=== PATIENT | female | born 1985 | race African-American/Black ===

== ENCOUNTER 2019-08-29 23:00 | Inpatient (IN) | payer MEDICAID ==
[~2019-08-29] VITALS: Ht 154.9 cm; Wt 75.7 kg
[~2019-08-29 23:00] MED LIST: CIPRO; PEPCID
[2019-08-29] MEDS ORDERED: SODIUM CHLORIDE 0.9% 1,000 ML IV ONE (23:21)
[2019-08-29] MEDS ORDERED: LEVETIRACETAM 1000MG/100ML 100 ML IV ONE (23:30)
[2019-08-29 23:53] LABS: BASOPHILS % 0.7 % (0.0-2.0); EOSINOPHILS % 2.6 % (0.0-5.0); HEMATOCRIT. 33.9 % (36.0-48.0); HEMOGLOBIN. 11.5 g/dL (12.0-16.0); LYMPHOCYTES % 15.7 % (20.0-50.0); MEAN CORPUSCULAR HEMOGLOBIN 28.7 pg (28.0-32.0); MEAN CORPUSCULAR VOLUME 84.8 fL (81.0-99.0); MEAN PLATELET VOLUME 8.5 fl (7.4-10.4); PLATELET 423 x1000/uL (130-400); RED CELL DISTRIBUTION WIDTH 17.3 % (11.6-14.6)
[2019-08-30 00:04] LABS: CHLORIDE 107 mEq/L (98-107)
[2019-08-30 00:08] LABS: ETHANOL BLOOD < 10 mg/dL
[2019-08-30] MEDS ORDERED: LORAZEPAM 2MG/ML CPJ ONE (00:09)
[2019-08-30] MEDS ORDERED: LORAZEPAM 2MG/ML CPJ IV ONE ×2 (00:15→01:00)
[2019-08-30] MEDS ORDERED: PHENYTOIN SODIUM 1,000 MG in SODIUM CHLORIDE 0.9% 100 ML IV ONE (02:15)
[2019-08-30] MEDS ORDERED: LORAZEPAM 2MG/ML CPJ IV NR (02:15)
[2019-08-30] MEDS ORDERED: ONDANSETRON HCL 4MG/2ML INJ IV NR (02:15)
[2019-08-30] MEDS ORDERED: IPRATROPIUM/ALBUTEROL 0.5-3(2.5)MG/3ML NEB HHN PRN (05:45)
[2019-08-30] MEDS ORDERED: MAGNESIUM/ALUMINUM HYDROXIDE/SIMETHICONE 30ML UDC PO PRN (05:45)
[2019-08-30] MEDS ORDERED: CLONIDINE 0.1MG TABLET PO PRN (05:45)
[2019-08-30] MEDS ORDERED: MORPHINE SULFATE 2 MG/ML CPJ (NOT FOR IM USE) IV PRN (05:45)
[2019-08-30] MEDS ORDERED: ONDANSETRON HCL 4MG/2ML INJ IV PRN (05:45)
[2019-08-30] MEDS ORDERED: HALOPERIDOL LACTATE 5MG/ML VIAL IM PRN (05:45)
[2019-08-30] MEDS ORDERED: ACETAMINOPHEN 325MG TABLET PO PRN (05:45)
[2019-08-30] MEDS ORDERED: DIPHENHYDRAMINE 50MG/ML VIAL IV PRN (05:45)
[2019-08-30] MEDS ORDERED: HYDROCODONE/ACETAMINOPHEN 10/325MG TABLET PO PRN (05:45)
[2019-08-30] MEDS ORDERED: LORAZEPAM 2MG/ML CPJ IV PRN (05:45)
[2019-08-30] MEDS ORDERED: HYDRALAZINE 20MG/ML VIAL IV PRN (05:45)
[2019-08-30] MEDS ORDERED: GUAIFENESIN 200MG/10ML SUGAR FREE UDC PO PRN (05:45)
[2019-08-30] MEDS ORDERED: DOCUSATE SODIUM 100MG CAPSULE PO PRN (05:45)
[2019-08-30] MEDS: SODIUM CHLORIDE 0.9% INJ 3ML FLUSH IVF SCH ×2 (06:29→14:45)
[2019-08-30 06:37] LABS: CLARITY URINE CLEAR (CLEAR); COLOR URINE YELLOW (YELLOW); KETONES URINE 1+ (NEGATIVE); LEUKOCYTE ESTERASE URINE NEGATIVE (NEGATIVE); NITRITE URINE NEGATIVE (NEGATIVE); OCCULT BLOOD URINE NEGATIVE (NEGATIVE); PROTEIN URINE NEGATIVE (NEGATIVE); SPECIFIC GRAVITY URINE 1.028 (1.005-1.030)
[2019-08-30 06:44] LABS: CREATINE KINASE 240 IU/L (26-192); CREATINE KINASE MB FRACTION < 1.0 ng/mL (0.5-3.6)
[2019-08-30 07:45] VITALS: BP 135/52
[2019-08-30 07:49] VITALS: BP 135/52
[2019-08-30 10:00] VITALS: BP 99/53
[2019-08-30] MEDS ORDERED: LEVETIRACETAM 1000MG/100ML 100 ML IV SCH (11:30)
[2019-08-30 15:50] LABS: *AMPHETAMINES SCREEN URINE NEGATIVE (NEGATIVE); *BARBITURATES SCREEN URINE NEGATIVE (NEGATIVE); *BENZODIAZEPINES SCREEN URINE NEGATIVE (NEGATIVE)
[2019-08-30 15:51] LABS: OPIATES URINE SCREEN NEGATIVE (NEGATIVE); PHENCYCLIDINE URINE SCREEN NEGATIVE (NEGATIVE)
[2019-08-30 15:53] LABS: METHADONE URINE SCREEN NEGATIVE (NEGATIVE)
[2019-08-30 15:56] LABS: *COCAINE SCREEN URINE PRESUMTIVE POSITIVE (NEGATIVE); CANNABINOID URINE SCREEN PRESUMTIVE POSITIVE (NEGATIVE)
[2019-08-30 19:32] LABS: TOTAL IRON BINDING CAPACITY 539 ug/dL (250-450)
[2019-08-30] MEDS ORDERED: LEVETIRACETAM 500MG TABLET PO SCH (21:00)
== END 2019-08-30 18:27 | disposition left against medical advice (07) | DRG 53 ==
LOC: ER 23:00 → 5EST 08-30 02:12 → ENRESERV 08-30 02:56 → ER 08-30 07:28
PROVIDERS: ADMIT Internal Medicine; ATTEND Internal Medicine
DX: G40.901 Epilepsy, unspecified, not intractable, with status epilepticus (principal); K92.0 Hematemesis; R65.10 Systemic inflammatory response syndrome (SIRS) of non-infectious origin without acute organ dysfunction; D64.9 Anemia, unspecified; Z53.29 Procedure and treatment not carried out because of patient's decision for other reasons
CPT/HCPCS: 36415; 80053; 80305; 80320; 81003; 82550; 82553; 82962; 83540; 83550; 84484; 85025; 99291; J1165; J1630; J1953; J2060; J2405; J7030; J7050; G0480

== ENCOUNTER 2019-11-24 12:51 | Inpatient (IN) | payer MEDICAID ==
[~2019-11-24] VITALS: Ht 152.4 cm; Wt 71.7 kg
[2019-11-24] MEDS ORDERED: LEVETIRACETAM 1000MG/100ML 100 ML IV ONE (13:15)
[2019-11-24 14:50] LABS: CHLORIDE 106 mEq/L (98-107)
[2019-11-24 14:55] LABS: ETHANOL BLOOD < 10 mg/dL
[2019-11-24] MEDS ORDERED: ONDANSETRON HCL 4MG/2ML INJ IV ONE (15:00)
[2019-11-24 15:02] LABS: BASOPHILS % 0.6 % (0.0-2.0); EOSINOPHILS % 0.9 % (0.0-5.0); HEMOGLOBIN. 10.3 g/dL (12.0-16.0); LYMPHOCYTES % 10.6 % (20.0-50.0); MEAN CORPUSCULAR HEMOGLOBIN 28.5 pg (28.0-32.0); MEAN CORPUSCULAR VOLUME 88.4 fL (81.0-99.0); MONOCYTES % 3.9 % (2.0-8.0); RED BLOOD CELL COUNT 3.63 mill/uL (4.2-5.4)
[2019-11-24] MEDS ORDERED: SODIUM CHLORIDE 0.9% 1,000 ML IV ONE (15:26)
[2019-11-24 15:50] LABS: CLARITY URINE CLOUDY (CLEAR); COLOR URINE YELLOW (YELLOW); KETONES URINE 1+ (NEGATIVE); LEUKOCYTE ESTERASE URINE NEGATIVE (NEGATIVE); NITRITE URINE NEGATIVE (NEGATIVE); OCCULT BLOOD URINE NEGATIVE (NEGATIVE); PROTEIN URINE 1+ (NEGATIVE); SPECIFIC GRAVITY URINE 1.023 (1.005-1.030)
[2019-11-24 16:12] LABS: *AMPHETAMINES SCREEN URINE NEGATIVE (NEGATIVE); *BARBITURATES SCREEN URINE NEGATIVE (NEGATIVE); *COCAINE SCREEN URINE NEGATIVE (NEGATIVE)
[2019-11-24 16:13] LABS: *BENZODIAZEPINES SCREEN URINE NEGATIVE (NEGATIVE); METHADONE URINE SCREEN NEGATIVE (NEGATIVE); OPIATES URINE SCREEN NEGATIVE (NEGATIVE); PHENCYCLIDINE URINE SCREEN NEGATIVE (NEGATIVE)
[2019-11-24 16:14] LABS: CANNABINOID URINE SCREEN PRESUMTIVE POSITIVE (NEGATIVE)
[2019-11-24] MEDS ORDERED: METOCLOPRAMIDE HCL 10MG/2ML VIAL IV ONE (16:45)
[2019-11-24] MEDS ORDERED: MAGNESIUM 2 G PREMIX 50 ML IV ONE (17:30)
[2019-11-24] MEDS ORDERED: CEFTRIAXONE 1 G PREMIX 50 ML IV NR (17:30)
[2019-11-24] MEDS ORDERED: POTASSIUM CHLORIDE INJ 40 MEQ in DEXT 5% WATER 250 ML IV NR (18:00)
[2019-11-24 22:00] VITALS: BP 145/109
[2019-11-24] MEDS ORDERED: ONDANSETRON HCL 4MG/2ML INJ IV PRN ×2 (22:30→23:00)
[2019-11-24] MEDS ORDERED: FAMOTIDINE 20MG/2ML VIAL IV SCH (23:00)
[2019-11-24] MEDS ORDERED: SODIUM CHLORIDE 0.9% 1,000 ML IV SCH (23:00)
[2019-11-24 23:29] LABS: PLATELET ESTIMATE NORMAL
[2019-11-25] VITALS: BP 140/71
[2019-11-25 04:00] VITALS: BP 165/76
[2019-11-25 06:30] LABS: BASOPHILS % 0.2 % (0.0-2.0); HEMOGLOBIN. 10.3 g/dL (12.0-16.0); LYMPHOCYTES % 9.9 % (20.0-50.0); MEAN CORPUSCULAR HEMOGLOBIN 28.9 pg (28.0-32.0); MEAN CORPUSCULAR VOLUME 87.1 fL (81.0-99.0); MEAN PLATELET VOLUME 8.9 fl (7.4-10.4); MONOCYTES % 4.8 % (2.0-8.0); NEUTROPHILS % 85.1 % (40.0-76.0); PLATELET 410 x1000/uL (130-400); RED BLOOD CELL COUNT 3.56 mill/uL (4.2-5.4); RED CELL DISTRIBUTION WIDTH 16.7 % (11.6-14.6)
[2019-11-25 06:40] LABS: CHLORIDE 104 mEq/L (98-107)
== END 2019-11-25 07:10 | disposition left against medical advice (07) | DRG 566 ==
LOC: ER 12:54 → 5WST 18:16 → ENRESERV 19:55 → 5WST 11-25 01:45
PROVIDERS: ADMIT Internal Medicine; ATTEND Internal Medicine
DX: O99.352 Diseases of the nervous system complicating pregnancy, second trimester (principal); Z53.29 Procedure and treatment not carried out because of patient's decision for other reasons; R56.9 Unspecified convulsions; O10.912 Unspecified pre-existing hypertension complicating pregnancy, second trimester; Z3A.20 20 weeks gestation of pregnancy; O21.0 Mild hyperemesis gravidarum
CPT/HCPCS: 36415; 80048; 80053; 80305; 80320; 81003; 85025; 93005; 96365; 99285; J0696; J1953; J2405; J2765; J3475; J3480; J3490; J7030; J7060; G0480

== ENCOUNTER 2019-12-25 09:21 | Emergency (ER) | payer MEDICAID ==
[~2019-12-25] VITALS: Ht 177.8 cm; Wt 100.0 kg
[2019-12-25] MEDS ORDERED: KEPP500 PO (09:27)
[2019-12-25] MEDS ORDERED: LEVETIRACETAM 1000MG PREMIX 100 ML IV ONE (10:00)
[2019-12-25] MEDS ORDERED: LORAZEPAM 2MG/ML CPJ IV ONE (10:00)
[2019-12-25 10:16] LABS: BASOPHILS % 0.8 % (0.0-2.0); EOSINOPHILS % 2.4 % (0.0-5.0); HEMATOCRIT. 25.7 % (36.0-48.0); HEMOGLOBIN. 8.8 g/dL (12.0-16.0); LYMPHOCYTES % 15.3 % (20.0-50.0); MEAN CORPUSCULAR HEMOGLOBIN 29.5 pg (28.0-32.0); MEAN CORPUSCULAR VOLUME 86.4 fL (81.0-99.0); MEAN PLATELET VOLUME 9.3 fl (7.4-10.4); NEUTROPHILS % 75.5 % (40.0-76.0); PLATELET 376 x1000/uL (130-400); RED BLOOD CELL COUNT 2.98 mill/uL (4.2-5.4); RED CELL DISTRIBUTION WIDTH 16.4 % (11.6-14.6)
[2019-12-25 10:21] LABS: CLARITY URINE CLOUDY (CLEAR); COLOR URINE YELLOW (YELLOW); KETONES URINE 3+ (NEGATIVE); LEUKOCYTE ESTERASE URINE TRACE (NEGATIVE); NITRITE URINE NEGATIVE (NEGATIVE); OCCULT BLOOD URINE NEGATIVE (NEGATIVE); PH URINE 8.5 (4.5-8.0); PROTEIN URINE 1+ (NEGATIVE); SPECIFIC GRAVITY URINE 1.025 (1.005-1.030); UROBILINOGEN URINE 0.2 E.U./dL (0.2-1.0)
[2019-12-25 10:24] LABS: CHLORIDE 107 mEq/L (98-107)
[2019-12-25 10:30] LABS: ETHANOL BLOOD < 10 mg/dL
[2019-12-25 10:39] LABS: *AMPHETAMINES SCREEN URINE NEGATIVE (NEGATIVE); *BARBITURATES SCREEN URINE NEGATIVE (NEGATIVE); *COCAINE SCREEN URINE NEGATIVE (NEGATIVE)
[2019-12-25 10:42] LABS: METHADONE URINE SCREEN NEGATIVE (NEGATIVE); OPIATES URINE SCREEN NEGATIVE (NEGATIVE); PHENCYCLIDINE URINE SCREEN NEGATIVE (NEGATIVE)
[2019-12-25 10:46] LABS: *BENZODIAZEPINES SCREEN URINE PRESUMTIVE POSITIVE (NEGATIVE)
[2019-12-25 10:47] LABS: CANNABINOID URINE SCREEN PRESUMTIVE POSITIVE (NEGATIVE)
[2019-12-25 11:39] LABS: B-HCG QUANTITATIVE 14236 mIU/mL (<3)
[2019-12-25 15:00] VITALS: BP 134/85
[2019-12-28] MEDS ORDERED: METR500T PO (00:32)
[2019-12-28] MEDS ORDERED: PNV1TABL76 MT (00:32)
[2019-12-28] MEDS ORDERED: PROG100C10 VG (00:32)
== END 2019-12-25 15:00 | disposition home or self-care (01) ==
LOC: ER 09:21 → EDBEDREQ 09:44 → EDBEDREQTM 11:59 → EDBEDREQ 11:59 → EDBEDREQTM 13:25 → EDBEDREQ 13:25 → ER 15:00 → CANBEDREQ 15:53
DX: O26.892 Other specified pregnancy related conditions, second trimester (principal); O14.92 Unspecified pre-eclampsia, second trimester; R56.9 Unspecified convulsions; Z3A.21 21 weeks gestation of pregnancy; Z91.14 Patient's other noncompliance with medication regimen
CPT/HCPCS: 36415; 70450; 76805; 80053; 80305; 80320; 81003; 83615; 84484; 84702; 85025; 96365; 96375; 99285; J1953; J2060; G0480